=== PATIENT | female | born 1970 | race Caucasian/White ===

== ENCOUNTER 2021-09-26 01:48 | Day surgery (SDC) | payer BC, SELFPAY ==
[2021-09-19 15:20] VITALS: BMI 28.1
--- NOTE | 2021-09-19 15:30 | PC.NURSE ---
Addendum entered by Jeaneth Salazar RN 09/22/21 14:55: PT INSTRUCTED TO NOT TAKE ANY MEDICATIONS MORNING OF SURGERY. PT STATES SHE HAS ALREADY STOPPED ASPIRIN. Original Note: Report to the Outpatient Waiting Room, entrance under the green pavilion located off [facility], at time 0615 on date 09/26/2021. OR Time: 0815. - You and your visitor will be asked a series of questions to screen for COVID 19 for your protection. - Only one visitor is allowed at this time. - The patient visitor is requested to leave or wait in car when not with patient. - A mask is required within the hospital. Patients may have clear liquids (water, carbonated beverages, clear teas, apple juice) until 3 hours prior to surgery with a maximum of 20 ounces. - No food from midnight until time of surgery Take the following medications with a SIP of water the morning of surgery: Enalapril. Medications to discontinue per physician _Contact Dr. Hassan regarding Aspirin. Stop supplements 3 days prior to surgery. Please no make-up, nail montserratian, hairspray, perfume, deodorant, or body powder the day of surgery. No jewelry (including any body piercings) or valuables the day of surgery, leave them at home. Please take a shower or bath the night before, or the morning of, surgery with an antibacterial soap. Wear comfortable, loose fitting clothing. Children are encouraged to wear pajamas. - Jewelry must be removed prior to entering the operating room. Rings and piercings that are not removed may be cut off. - The hospital will not accept responsibility for valuables. - Please leave all valuables, including medications, at home the day of surgery. If you are going home after surgery, a licensed lumber stacker driver must drive you home. - NO public transportation without another adult. - We recommend that an adult stay with you for 24 hours following discharge. - We also recommend that you do not drive, make important decision, drink alcoholic beverages, or take any drugs that were not prescribed by your health care provider for at least 24 hours after your discharge time. Follow any additional instructions given to you from your surgeon. CONTACT DR. HASASN FOR URINE CULTURE REQUISITION TO BE DONE AT OUTSIDE FACILITY. If you or anyone in your household have experienced Covid symptoms in the past week, please notify your surgeon or the nurse liaison at the phone number below for possible testing. Telephone instructions given to patient and asked if any additional questions and then verbalized understanding. Patient advised to call surgeon office or pre surgery nurse liaison [phone] if any additional questions.
--- NOTE | 2021-09-21 20:23 | PM.IMHP ---
H&P: HPI History of Present Illness Date/Time: 09/21/21 20:23 mixed incontinence. ON meds for OAB. desires treatment of SANTINO Chief Complaint: SANTINO Review of Systems Review of Systems: All systems reviewed & are unremarkable except as noted in HPI and below PMFSH Social History Social History Smoking status: Never smoker Second hand tobacco smoke exposure: No Alcohol intake: current Drinks per week: 2 Alcohol use details: BEER/WINE Substance use: never Living arrangements: with family Spiritual care concerns: No Meds Home Medications and Allergies Home Medications Medication Instructions Recorded Confirmed Type aspirin 81 mg PO DAILY 09/19/21 09/19/21 History enalapril maleate 20 mg PO DAILY 09/19/21 09/19/21 History mirabegron 25 mg PO DAILY 09/19/21 09/19/21 History omega-3 fatty acids [Fish Oil] 500 mg PO DAILY 09/19/21 09/19/21 History oxybutynin chloride 10 mg PO DAILY 09/19/21 09/19/21 History phentermine 37.5 mg PO DAILY 09/19/21 09/19/21 History red yeast rice 1,200 mg PO DAILY 09/19/21 09/19/21 History Allergies Allergy/AdvReac Type Severity Reaction Status Date / Time No Known Allergies Allergy Verified 09/19/21 15:13 Exam Narrative: NAD A+O x3 + urehthral mobility Assessment and Plan Assessment and plan (1) SANTINO (stress urinary incontinence, female): Code(s): N39.3 - Stress incontinence (female) (male) Status: Acute Assessment and Plan: urethral sling
--- NOTE | 2021-09-25 12:51 | P.PNAN_ITS ---
Anes - Initial Pre Proc Eval Procedure: Operation Date: 09/26/21 08:15 Proposed Procedures p Urethral Sling - Al Hassan MD Date/Time: 09/25/21 12:51 Surgeon: Al Hassan MD Pre Op Diagnosis: stress incont. Patient Data Age: 50 Gender: F Height: 1.7 m Weight: 81.65 kg Allergies Allergy/AdvReac Type Severity Reaction Status Date / Time No Known Allergies Allergy Verified 09/26/21 06:46 Home Medications Medication Instructions Recorded Confirmed Type aspirin 81 mg PO DAILY 09/19/21 09/26/21 History enalapril maleate 20 mg PO DAILY 09/19/21 09/26/21 History mirabegron 25 mg PO DAILY 09/19/21 09/26/21 History omega-3 fatty acids [Fish Oil] 500 mg PO DAILY 09/19/21 09/26/21 History oxybutynin chloride 10 mg PO DAILY 09/19/21 09/26/21 History phentermine 37.5 mg PO DAILY 09/19/21 09/26/21 History red yeast rice 1,200 mg PO DAILY 09/19/21 09/26/21 History Patient hx anesthesia problems: none Family hx anesthesia problems: none Results Review: All pre-operative results and documents have been reviewed as part of the pre-operative evaluation. [facility] Past Medical History Medical History (Updated 09/25/21 @ 12:53 by Duke Henderson DO) Hyperlipidemia Hypertension Social History Social History Smoking status: Never smoker Second hand tobacco smoke exposure: No Alcohol intake: current Drinks per week: 2 Alcohol use details: BEER/WINE Substance use: never Living arrangements: with family Spiritual care concerns: No Anes - Eval Final PreProcedure Day of Procedure 09/25/21 12:51 Patient weight: overweight Heart: regular rate and rhythm Lungs: clear to auscultation and normal air movement Airway: Mallampati scale class II Neurological: alert and oriented Last oral intake: >/= 8 hours ASA classification: II Emergent: no Anesthetic plan: proceed Anesthesia type and monitoring: general GIVS and standard monitoring Results Review: All pre-operative results and documents have been reviewed as part of the pre-operative evaluation. Informed Consent: The patient's anesthetic plan and its attendant risks and benefits were discussed with the patient/family/POA. Questions were solicited and answers provided to the satisfaction of the patient/family/POA.
[2021-09-26 06:51] VITALS: BP 128/85; PULSE 70; RESP 16; TEMP 36.4; O2SAT 100; BMI 28.1
[2021-09-26] MEDS: LACTATED RINGERS 1,000 ML 30 ML IV CONT ×2 (07:03→09:37)
--- NOTE | 2021-09-26 07:13 | WPDHPUPDATE1 ---
History and Physical Update Update Date/Time: 09/26/21 07:13 History and Physical has been reviewed, including an updated exam of the patient. There are NO changes in the patient's condition. Risks, benefits, and alternatives have been discussed and questions answered. Patient agrees to proceed with procedure.
[2021-09-26] MEDS: ceFAZolin 2 GM/D5W 50 ML 2 GM/50 ML BAG IVPB (08:03)
[2021-09-26] MEDS: KETOROLAC 30 MG/ML VIAL (*BKC) IV PUSH (08:15)
[2021-09-26] MEDS: LIDO 1%/EPINEPHRINE/PF 1:200,000 30 ML VIAL 20 ML XX (08:16)
--- NOTE | 2021-09-26 08:32 | W.PM.PROC2 ---
Procedure Note - Detailed Date of Procedure 09/26/21 Pre-op Diagnosis stress incont. Post-op Diagnosis Same Procedure Performed mid urethral sling cystoscopy Surgeon Al Hassan MD Indications This is a female with confirm stress urinary incontinence. She desires surgical correction. She understands the risks of bleeding, infection, injury to the urinary tract, vaginal mesh extrusion, urinary tract mesh erosion, obstructive voiding requiring a secondary procedure, hip and leg pain, dyspareunia, inability to improve overactive bladder symptoms. She agrees to proceed. Description of Procedure She was correctly identified. Informed consent obtained. She was brought the operating room. She was given appropriate anesthesia. She was given appropriate perioperative antibiotics. A time-out performed. I marked out the site of the inner thigh incisions. I anesthetized the skin and made those incisions. I anesthetized the anterior vaginal wall over the mid urethra. I made a 1 cm incision. I dissected out laterally taking great care not to injure the refilled vaginal wall. I passed the helical trocars. First on the left. Then on the right. I did this from the thigh incision towards the vaginal incision. The sling was connected to the trocars and brought out through the thigh incision. I tensioned the sling appropriately. I cut and the plastic sheaths. I then closed the incision with 2 0 Vicryl. On cystoscopy there is no tumors or surgical artifact. There was no surgical artifact in the urethra. I cut the excess sling material. Close incisions with glue. She was awakened and transferred to the PACU in stable condition. Implants Urethral sling Drains No Packing No Pathology None sent Complications No immediate complications Condition Stable Disposition PACU
[2021-09-26 08:35] VITALS: BP 112/76; PULSE 80; RESP 16; O2SAT 96
[2021-09-26 09:05] VITALS: BP 116/76; PULSE 75; RESP 16
[2021-09-26 09:35] VITALS: BP 120/71; PULSE 54; RESP 16
== END 2021-09-26 09:55 | disposition home or self-care (01) ==
PROVIDERS: Visit Provider Urology
PROC: (CPT 57288; principal; 2021-09-26 08:15)
DX: N39.3 Stress incontinence (female) (male) (principal); Z79.82 Long term (current) use of aspirin; I10 Essential (primary) hypertension; E78.5 Hyperlipidemia, unspecified
CPT/HCPCS: 57288; A9270; C1771; J0690; J1100; J1885; J2250; J2405; J2704; J3010; J7030; J7120